=== PATIENT | male | born 1935 | race Caucasian/White ===

== ENCOUNTER → 2017-03-20 | Outpatient (CLI) | payer OTHER ==
--- NOTE | 2017-03-20 10:09 | PCVCIMAG ---
APPROVED REPORT Laterality: Bilateral Indications Stenosis Doppler Spectral Velocity Analysis PSV / EDVPSV / EDV ECA (R) 115 / 11 cm/sECA (L) 114 / 7 cm/s dICA (R) 69 / 17 cm/sdICA (L) 70 / 22 cm/s Swathi (R) 192 / 25 cm/smICA (L) 83 / 22 cm/s pICA (R) 179 / 28 cm/spICA (L) 109 / 16 cm/s Bulb (R) 57 / 8 cm/sBulb (L) 83 / 14 cm/s dCCA (R) 83 / 10 cm/sdCCA (L) 103 / 12 cm/s mCCA (R) 104 / 10 cm/smCCA (L) 96 / 14 cm/s Vert (R) 48 / 9 cm/sVert (L) 44 / 9 cm/s ICA/CCA ICA/CCA Findings The right carotid bulb has moderate calcified plaque. The right proximal internal carotid artery shows 50-60% stenosis. The right common carotid artery shows no significant stenosis. The right external carotid artery shows no significant stenosis. The left carotid bulb has mild calcified plaque. The left proximal internal carotid artery shows <40% stenosis. The left common carotid artery shows no significant stenosis. The left external carotid artery shows no significant stenosis. Conclusion 1. Right internal carotid artery stenosis (50-60%) 2. Left internal carotid artery stenosis (<40%) 3. Antegrade vertebral flow
== END | disposition home or self-care (01) ==
LOC: PCVCIMAG 09:03
PROVIDERS: ATTEND Internal Medicine Cardiovascular Disease
DX: I65.23 Occlusion and stenosis of bilateral carotid arteries (principal); I10 Essential (primary) hypertension; E78.00 Pure hypercholesterolemia, unspecified; Z79.82 Long term (current) use of aspirin
CPT/HCPCS: 80061; 93005; 93880; G0463

== ENCOUNTER 2017-09-19 10:37 | Outpatient (CLI) | payer OTHER | END 2017-10-05 | disposition home or self-care (01) | LOC: PCVCIMAG 10:37 | DX: I65.23 Occlusion and stenosis of bilateral carotid arteries (principal) | CPT/HCPCS: 93880 ==

== ENCOUNTER → 2017-11-21 | Outpatient (CLI) | payer OTHER | END | disposition home or self-care (01) | LOC: PCVCIMAG 16:00 | DX: I10 Essential (primary) hypertension (principal); E78.5 Hyperlipidemia, unspecified; E83.59 Other disorders of calcium metabolism | CPT/HCPCS: 93325; 93351 ==

== ENCOUNTER → 2018-08-26 | Outpatient (CLI) | payer OTHER ==
--- NOTE | 2018-08-26 13:07 | PCVCIMAG ---
EXAM: BILATERAL CAROTID DUPLEX INDICATION: Carotid Occlusive Disease. FINDINGS: Doppler Measurements (centimeters per second): RIGHT: Peak CCA-63, Peak ECA-95, Diastolic ICA-40, Peak ICA-201, ICA/CCA Ratio-3.2. LEFT: Peak CCA-110, Peak ECA-115, Diastolic ICA-13, Peak ICA-97, ICA/CCA Ratio-0.9. RIGHT CAROTID: The carotid bulb has moderate plaque. The proximal internal carotid artery shows 60-70% stenosis. The common carotid artery shows no significant stenosis. The external carotid artery shows no significant stenosis. LEFT CAROTID: The carotid bulb has moderate plaque. The proximal internal carotid artery shows <40% stenosis. The common carotid artery shows no significant stenosis. The external carotid artery shows no significant stenosis. Antegrade flow in both vertebral arteries. IMPRESSION: 60-70% stenosis of the right internal carotid artery with moderate plaque. <40% stenosis of the left internal carotid artery with moderate plaque. No change since September 2017 study. LOC:[id number]
== END | disposition home or self-care (01) ==
LOC: PCVCIMAG 11:34
PROVIDERS: ATTEND Internal Medicine Cardiovascular Disease
DX: I65.23 Occlusion and stenosis of bilateral carotid arteries (principal); I10 Essential (primary) hypertension; R09.89 Other specified symptoms and signs involving the circulatory and respiratory systems; E78.00 Pure hypercholesterolemia, unspecified; R42 Dizziness and giddiness; Z87.891 Personal history of nicotine dependence; Z79.82 Long term (current) use of aspirin
CPT/HCPCS: 93880

== ENCOUNTER → 2019-07-17 | Outpatient (CLI) | payer OTHER ==
--- NOTE | 2019-07-17 15:05 | PCVCIMAG ---
EXAM: BILATERAL CAROTID DUPLEX INDICATION: Carotid Occlusive Disease. FINDINGS: Doppler Measurements (centimeters per second): RIGHT: Peak CCA-76, Peak ECA-93, Diastolic ICA-41, Peak ICA-197, ICA/CCA Ratio-2.6. LEFT: Peak CCA-109, Peak ECA-106, Diastolic ICA-15, Peak ICA-105, ICA/CCA Ratio-1.0. RIGHT CAROTID: The carotid bulb has moderate plaque. The proximal internal carotid artery shows 60-70% stenosis. The common carotid artery shows no significant stenosis. The external carotid artery shows no significant stenosis. LEFT CAROTID: The carotid bulb has moderate plaque. The proximal internal carotid artery shows <40% stenosis. The common carotid artery shows no significant stenosis. The external carotid artery shows no significant stenosis. Antegrade flow in both vertebral arteries. IMPRESSION: 60-70% stenosis of the right internal carotid artery with moderate plaque. <40% stenosis of the left internal carotid artery with moderate plaque. No change since September 2017 study. LOC:[id number]
--- NOTE | 2019-07-17 15:07 | PCVCIMAG ---
EXAM: ARTERIAL DUPLEX LEFT UPPER EXTREMITY INDICATION: Peripheral arterial disease. Left subclavian stenosis on outside CT. FINDINGS Left arm: Satisfactory arterial waveforms in the subclavian, axillary, brachial, radial, and ulnar arteries. 50% stenosis proximal left subclavian artery not felt be flow-limiting. Right arm systolic pressure 146 mmHg and left arm systolic pressure 144 mmHg. IMPRESSION: 50% left subclavian artery stenosis is not felt be flow-limiting. LOC:[id number]
== END | disposition home or self-care (01) ==
LOC: PCVCIMAG 12:18
PROVIDERS: ATTEND Internal Medicine Cardiovascular Disease
DX: I65.23 Occlusion and stenosis of bilateral carotid arteries (principal); I87.1 Compression of vein
CPT/HCPCS: 93880; 93931